=== PATIENT | male | born 1985 | race Caucasian/White ===

== ENCOUNTER 2018-12-11 18:44 | Emergency (ER) | payer OTHER ==
[~2018-12-11] VITALS: Ht 172.7 cm; Wt 81.7 kg
== END 2018-12-11 19:55 | disposition home or self-care (01) ==
LOC: ED 18:44
DX: S61.215A Laceration without foreign body of left ring finger without damage to nail, initial encounter (principal); W26.0XXA Contact with knife, initial encounter; F17.200 Nicotine dependence, unspecified, uncomplicated
CPT/HCPCS: 12001; 90471; 90715; 99282-25

== ENCOUNTER 2022-02-21 06:47 | Emergency (ER) | payer OTHER ==
[~2022-02-21] VITALS: Ht 172.7 cm; Wt 81.7 kg
[2022-02-21] MEDS ORDERED: CEPHALEXIN500 M1 PO (07:25)
[2022-02-21] MEDS ORDERED: PREDNISONE20 MG PO (07:25)
== END 2022-02-21 07:40 | disposition home or self-care (01) ==
LOC: ED 06:47
DX: L25.8 Unspecified contact dermatitis due to other agents (principal); N48.22 Cellulitis of corpus cavernosum and penis; F17.200 Nicotine dependence, unspecified, uncomplicated
CPT/HCPCS: 81001; 87491; 99283

== ENCOUNTER 2023-06-28 05:24 | Emergency (ER) | payer OTHER ==
[~2023-06-28] VITALS: Ht 172.7 cm; Wt 82.0 kg
[~2023-06-28 05:24] MED LIST: CEPHALEXIN500 M1 PO; PREDNISONE20 MG PO
[2023-06-28 06:05] VITALS: BP 133/93
== END 2023-06-28 06:07 | disposition home or self-care (01) ==
LOC: ED 05:24
DX: L25.9 Unspecified contact dermatitis, unspecified cause (principal); F17.200 Nicotine dependence, unspecified, uncomplicated

== ENCOUNTER 2023-08-01 09:16 | Emergency (ER) | payer OTHER ==
[~2023-08-01] VITALS: Ht 172.7 cm; Wt 82.0 kg
[2023-08-01 10:52] VITALS: BP 128/102
== END 2023-08-01 10:52 | disposition home or self-care (01) ==
LOC: ED 09:16
DX: H02.844 Edema of left upper eyelid (principal); H02.841 Edema of right upper eyelid; F17.200 Nicotine dependence, unspecified, uncomplicated
CPT/HCPCS: 99283